=== PATIENT | female | born 1975 | race Caucasian/White ===

== ENCOUNTER 2018-09-15 20:53 | Inpatient (IN) | payer OTHER ==
[~2018-09-15] VITALS: Ht 165.1 cm; Wt 80.3 kg
[2018-09-15 20:57] VITALS: Ht 165.1 cm; Wt 80.3 kg
--- NOTE | 2018-09-15 20:57 | NUR ---
PT BROUGHT TO ED BY [facility] WITH C/O SUDDEN ONSET OF SUBSTERNAL CHEST PAIN WHILE AT [place]. PER MEDICS, PT WAS DANCING AT [place] WHEN SHE FELT A SUDDEN ONSET OF SHARP PAIN SUBSTERNALLY. PT STATES THAT THE PAIN RADIATED TO HER UPPER BACK. PT RATED PAIN AT 5/10 AT ONSET OF SYMPTOMS. PT WAS GIVEN 324MG OF ASA AND 1 DOSE OF SL NITRO EN ROUTE AND PAIN RATED AT 4/10 AT THIS TIME. PT DENIES N/V OR SOB. PT HAS HX OF ME AND STROKE WITH L SIDED DEFICITS. PT PLACED ON FULL CM, NSR AT THIS TIME. PT AOX4, RESP EVEN AND UNLABORED, NO ACUTE DISTRESS NOTED.
[2018-09-15 21:55] LABS: BASOPHIL % 0.8 % (0-2); PLATELET COUNT 287 x10^3mcL (130-400)
[2018-09-15 21:56] LABS: RED CELL DISTRIBUTION WIDTH 15.5 % (11.5-14.5)
[2018-09-15 22:06] LABS: CALCIUM 8.7 mg/dL (8.5-10.1); CARBON DIOXIDE 28.7 mmol/L (21-32); CHLORIDE SERUM 107 mmol/L (98-107); GFR1 > 60 mL/min; GLUCOSE SERUM 232 mg/dL (74-106); SODIUM SERUM 141 mmol/L (136-145)
--- NOTE | 2018-09-15 22:09 | NUR ---
PT LIVING FACILITY CALLED [facility] THEY CANNOT PROVIDE A RIDE UNTIL TOMORROW AT 7AM. ADDRESS GIVEN IN CASE PT NEEDS TAXI. [address] [facility] [id number]
[2018-09-15 22:14] LABS: ALKALINE PHOSPHATASE 103 U/L (46-116); ALT/SGPT 18 U/L (14-59); AST/SGOT 15 U/L (15-37); BILIRUBIN TOTAL 0.2 mg/dL (0.20-1.00); TOTAL PROTEIN, SERUM 6.2 g/dL (6.4-8.2)
[2018-09-15 22:15] LABS: ALBUMIN 2.5 g/dL (3.4-5.0)
--- NOTE | 2018-09-15 22:38 | NUR ---
PT AMBULATED WITH STEADY GAIT TO RESTROOM. PT AOX4, RESP EVEN AND UNLABORED, NO ACUTE DISTRESS NOTED. PT DENIES CHEST PAIN AT THIS TIME.
--- NOTE | 2018-09-15 23:22 | NUR ---
PT RESTING IN A POSITION OF COMFORT AT THIS TIME. AOX4, RESP EVEN AND UNLABORED, NO ACUTE DISTRESS NOTED. PT ON MONITOR IN VIEW OF NURSING STATION.
--- NOTE | 2018-09-15 23:39 | NUR ---
REPORT GIVEN TO GURU ORTEGA TO ASSUME CARE.
[2018-09-15] MEDS ORDERED: LASIX40 MG PO (23:40)
[2018-09-15] MEDS ORDERED: ABILIFY5 M1 PO (23:40)
[2018-09-15] MEDS ORDERED: ABILIFY20 M1 PO (23:48)
[2018-09-15] MEDS ORDERED: POTASSIUM CHLO10 MEQ PO (23:49)
[2018-09-15] MEDS ORDERED: LISINOPRIL10 MG PO (23:49)
[2018-09-15] MEDS ORDERED: FUROSEMIDE40 MG PO (23:49)
[2018-09-15] MEDS ORDERED: CARVEDILOL6.25 M1 PO (23:50)
[2018-09-15] MEDS ORDERED: PAROXETINE20 M1 PO (23:51)
[2018-09-16 00:04] VITALS: BP 139/78
[2018-09-16 00:08] LABS: CHOLESTEROL/HDL RATIO 3.3; MAGNESIUM 1.7 mg/dL (1.8-2.4); PHOSPHOROUS 4.4 mg/dL (2.5-4.9)
--- NOTE | 2018-09-16 00:09 | NUR ---
RECEIVED PT FROM ED VIA [facility]. ORIENTED PT TO ROOM AND SURROUNDINGS. IV NOTED TO RH PATENT AND INTACT. TELE 24 PLACED ON PT READING NSR. INSTRUCTED PT ON THE USE OF CALL LIGHT FOR ASSISTANCE. ENDORSED PT TO PRIMARY NURSE JORDAN
[2018-09-16 00:18] LABS: FREE T4 1.01 ng/dL (0.76-1.46); FREE THYROXINE INDEX 2.7 ug/dL (1.4-4.5); T4(THYROXINE) 7.1 ug/dL (4.7-13.3)
--- NOTE | 2018-09-16 00:20 | NUR ---
DR. MCKEE AT BEDSIDE FOR MSE.
[2018-09-16 01:54] LABS: T3 TOTAL 1.25 ng/mL
--- NOTE | 2018-09-16 02:50 | NUR ---
PAGED DR. MCKEE X2 REGARDING MAG 1.7 AND TO CLARIFY CODE STATUS. WAITING FOR CALLBACK.
[2018-09-16 03:56] LABS: BASOPHIL % 0.5 % (0-2); PLATELET COUNT 281 x10^3mcL (130-400); RED CELL DISTRIBUTION WIDTH 14.3 % (11.5-14.5)
[2018-09-16 05:10] VITALS: BP 141/88
--- NOTE | 2018-09-16 05:56 | NUR ---
PT TOLERATED MORNING ADMINISTRATION WELL, THOUGH DROWSY. DENIES CP. NO S/S ACUTE DISTRESS. BREATHING E/U ON RA. NO CHANGES OVERNIGHT. ALL NEEDS MET AND ATTENDED TO. CALL LIGHT WITHIN REACH. SAFETY MEASURES IN PLACE. WILL ENDORSE CARE TO ONCOMING SHIFT.
--- NOTE | 2018-09-16 07:05 | NUR ---
RECEIVED PT FROM BARRIE ORTE[facility]. PT AA/OX4 LAYING IN BED ON RIGHT SIDE. ABLE TO REPOSITION INDEPENDENTLY. NO S/S OF ACUTE DISTRESS. SPEECH CLEAR. NSR ON TELE, HR 94, NO SOB ON ROOM AIR. FALL PRECAUTIONS IN PLACE. IV WNL TO RH, SALINE LOCKED. BED IN LOW POSITION. CALL LIGHT WITHIN REACH. WILL CONTINUE TO MONITOR.
[2018-09-16 08:02] VITALS: BP 144/86
[2018-09-16 08:26] LABS: UA SPECIFIC GRAVITY 1.015 (1.005-1.035); microscopic required? YES; urine erythrocyte 2+ (NEGATIVE)
[2018-09-16 08:35] LABS: AMPHETAMINE QUAL UR NONE DETECTED (See below)
[2018-09-16 09:00] LABS: TOTAL IRON BINDING CAPACITY 351 ug/dL (250-450)
[2018-09-16 09:04] LABS: IRON 34 ug/dL (50-170)
--- NOTE | 2018-09-16 10:00 | NUR ---
PT COMPLAINT OF NAUSEA, VOMITTING BROWN/CHUNKY EMESIS, LARGE AMOUNT, NAUSEA MEDICATION GIVEN. REPORTS RICHMOND, RATES 6/10, ACHING, ACUTE, GIVEN PO MEDICATION AFTER NAUSEA DECREASED. PT AA/OX4. LAYING IN BED. IV WNL TO RH, MAG RIDER STARTED, SITE WNL, NO REDNESS, NO SWELLING, NO INFILTRATION. PATENT AND FLUSHES WELL. BED IN LOW POSITION. CALL LIGHT WITHIN REACH. WILL CONTINUE TO MONITOR.
--- NOTE | 2018-09-16 10:46 | NUR ---
ECHO PENDING. PT. NOT FEELING WELL. VOMITING AT BED SIDE. NURSE IS ATTENDING TO PT. AT THIS TIME.
--- NOTE | 2018-09-16 11:00 | NUR ---
IV INSERTED TO RFA, 20 GAUGE.
[2018-09-16 12:19] VITALS: BP 141/85
--- NOTE | 2018-09-16 12:25 | NUR ---
PATIENT WENT DOWN TO RAD.DEPT FOR CT.OF THE CHEST AT THIS TIME WITH STABLE CONDITION.
--- NOTE | 2018-09-16 12:50 | NUR ---
PATIENT BACK FROM RAD. DEPT. DENIES CHEST PAIN OR ANY DISCOMFORT, LUNCH PROVIDED.
--- NOTE | 2018-09-16 14:09 | NUR ---
PT FOUND RESTING IN BED WITH BOTH EYES CLOSED. NO S/S OF ACUTE DISTRESS. EASILY AROUSABLE TO VERBAL STIMULI, FACE SYMMETRICAL. SPEECH CLEAR. NO RICHMOND. NO DIZZINESS. NO N/V AT THIS TIME. IVS WNL TO RH/RFA, PATENT AND FLUSH WELL. BED IN LOW POSITION. CALL LIGHT WITHIN REACH. WILL CONTINUE TO MONITOR.
[2018-09-16 15:56] VITALS: BP 136/69
[2018-09-16 16:02] LABS: CALCIUM 9.6 mg/dL (8.5-10.1); CARBON DIOXIDE 29.6 mmol/L (21-32); CHLORIDE SERUM 101 mmol/L (98-107); CREATININE SERUM 0.9 mg/dL (0.6-1.0); GFR1 > 60 mL/min; GLUCOSE SERUM 174 mg/dL (74-106); SODIUM SERUM 139 mmol/L (136-145)
--- NOTE | 2018-09-16 18:28 | NUR ---
PT SITTING IN CHAIR IN ROOM, AA/OX4. DENIES PAIN. NO SOB ON ROOM AIR. NO CHEST PAIN. PT APPEARS HOPELESS/AGITATED AT TIMES. DR. WALKER AWARE OF RIGHT FOOT WOUND, PT REPORTS HAVING WOUND X4 YEARS, APPEARS DRY, REPORTS INTERMITTENT TOLERABLE PAIN. DR. WALKER SAW PATIENT AT BEDSIDE, NO FURTHER ORDERS GIVEN. IV WNL TO RFA/RH, NO REDNESS, NO SWELLING, NO INFILTRATION. PATENT AND FLUSH WELL. SALINE LOCKED. MED-SURG. WILL ENDORSE TO ONCOMING SHIFT.
[2018-09-16 19:12] VITALS: BP 143/91
--- NOTE | 2018-09-16 19:47 | NUR ---
PT'S SITTIGN ON THE EDGE OF THE BED AAOX4 DENY CHEST PAIN AT THE MOMENT , LUNG SOUNDS CTA , ABD SOFT BS ACTIVE X4. HLX2 INTACT FLUSHING WELL , CALL LIGHT WITHIN PT'S REACH , WILL CON'T TO MONITOR AND ASSIST PT WITH CARE.
--- NOTE | 2018-09-17 00:12 | NUR ---
PT;S IN BED WITH EYES CLOSED .
[2018-09-17 05:21] VITALS: BP 111/76
[2018-09-17 05:58] LABS: BASOPHIL % 0.8 % (0-2); PLATELET COUNT 286 x10^3mcL (130-400)
--- NOTE | 2018-09-17 06:29 | NUR ---
NO CHANGES OF CONDITION NOTED, ALL DUE MEDS GIVEN NO REACTION NOTED, . PT DENY PAIN AT THE MOMENT , HL [id number] FLUSHING WELL
[2018-09-17 06:36] LABS: CALCIUM 8.6 mg/dL (8.5-10.1); CARBON DIOXIDE 29.2 mmol/L (21-32); CHLORIDE SERUM 104 mmol/L (98-107); CREATININE SERUM 0.9 mg/dL (0.6-1.0); GFR1 > 60 mL/min; GLUCOSE SERUM 147 mg/dL (74-106); MAGNESIUM 1.9 mg/dL (1.8-2.4); PHOSPHOROUS 5.2 mg/dL (2.5-4.9); POTASSIUM SERUM 4.1 mmol/L (3.5-5.1); SODIUM SERUM 140 mmol/L (136-145)
[2018-09-17 06:50] LABS: RED CELL DISTRIBUTION WIDTH 16.1 % (11.5-14.5)
--- NOTE | 2018-09-17 07:43 | NUR ---
PATIENT RESTING IN BED, NO ACUTE DISTRESS NOTED. PATIENT DENIES PAIN AT THIS TIME. NO RESPIRATORY DISTRESS NOTED, PATIENT ON ROOM AIR. PATIENT IS ON STRICT I&Os 2L/DAY. IV TO RIGHT HAND CDI & PATENT, NO S/S OF INFILTRATIN, SALINE LOCK. CALL LIGHT WITHIN REACH, BED IN LOW POSITION, WILL CONTINUE TO MONITOR FOR CHANGES.
[2018-09-17 08:45] VITALS: BP 115/73
[2018-09-17 17:14] VITALS: BP 132/67
--- NOTE | 2018-09-17 17:40 | NUR ---
PATIENT WAS FEELING IRRITATED AND ANXIOUS. PATIENT WAS CONCERN WHETHER SHE WILL BE ABLE TO GO HOMETODAY. PATIENT WANTED TO SPEAK WITH THE DOCTOR REGARDING DISCHARGE. DR. WALKER WAS PAGED AT THIS TIME.
--- NOTE | 2018-09-17 18:10 | NUR ---
DR. WALKER AT BEDSIDE.
--- NOTE | 2018-09-17 18:18 | NUR ---
PATIENT STATES SHE FEELS BETTER AFTER SPEAKING WITH THE DOCTOR. ALL QUESTIONS AND CONCERNS ADDRESSED WITH DR. WALKER. NO ACUTE CHANGES NOTED THROUGH OUT SHIFT, PATIENT IS STABLE. DENIES PAIN AT THIS TIME. IV SITE TO CDI & PATENT, NO S/S OF INFILTRATION, SALINE LOCK. CALL LIGHT WITHIN REACH, BED IN LOW POSITION. WILL ENDORSE REPORT TO NIGHT RN.
[2018-09-17] MEDS ORDERED: ZES10 PO ×2 (18:34→20:11)
[2018-09-17 18:39] VITALS: BP 132/67
[2018-09-17] MEDS ORDERED: CARVEDILOL6.25 M1 PO (18:40)
[2018-09-17] MEDS ORDERED: COR6 PO ×2 (18:47→20:11)
[2018-09-17] MEDS ORDERED: L40 PO (18:49)
[2018-09-17 19:38] VITALS: BP 120/72
--- NOTE | 2018-09-17 19:55 | NUR ---
RECIEVED PT FROM DAY NURSE. PT SITTING IN BED COMFORTABLY. PT STATES NO PAIN AT THIS TIME. DENIES N/V, DIZZINESS, AND PALPATATIONS. A/O X4. PALPABLES PULSES, NO EDEMA NOTED. LUNG SOUNDS CLEAR BILATERALLY, ON RA. PT STATES LAST BM 09/17, FORMED. RIGHT FA AND RIGHT HAND IVS REMOVED. PT WAITING FOR DISCHARGE. BED AT LOWEST POSITION. CALL LIGHT WITHIN REACH. WILL CONTINUE TO MONITOR.
--- NOTE | 2018-09-17 20:30 | NUR ---
DISCHARGE TEACHING PROVIDED. ALL QUESTIONS AND CONCERNS ADDRESSED. PAPERWORK SIGNED. NO COMPLAINTS AT THIS TIME. VS STABLES. PT TAKEN DOWN VIA WHEELCHAIR ACCOMPAINIED BY DISCOVERY GUIDE. ALL BELONGINGS WITH PT.
== END 2018-09-17 20:28 | disposition home health service (06) | DRG 194 ==
LOC: EDBD 20:53 → ED 20:53 → DU 23:22 → MU 23:22 → DU 09-16 00:03 → MU 09-16 16:21
PROVIDERS: Emergency Medicine; ADMIT Internal Medicine
DX: I11.0 Hypertensive heart disease with heart failure (principal); N17.0 Acute kidney failure with tubular necrosis; E43 Unspecified severe protein-calorie malnutrition; M94.0 Chondrocostal junction syndrome [Tietze]; I50.43 Acute on chronic combined systolic (congestive) and diastolic (congestive) heart failure; E83.42 Hypomagnesemia; E11.42 Type 2 diabetes mellitus with diabetic polyneuropathy; I42.9 Cardiomyopathy, unspecified; E11.65 Type 2 diabetes mellitus with hyperglycemia; E02 Subclinical iodine-deficiency hypothyroidism; F41.9 Anxiety disorder, unspecified; F17.210 Nicotine dependence, cigarettes, uncomplicated; F20.9 Schizophrenia, unspecified; I69.354 Hemiplegia and hemiparesis following cerebral infarction affecting left non-dominant side; Z79.4 Long term (current) use of insulin; Z68.34 Body mass index [BMI] 34.0-34.9, adult; I25.2 Old myocardial infarction; Z88.1 Allergy status to other antibiotic agents
CPT/HCPCS: 82962; 83880; 84439; G0378; J1940; J2405; J3475; Q0092; Q9967